=== PATIENT | female | born 1950 | race Caucasian/White ===

== ENCOUNTER → 2020-03-25 | Outpatient (CLI) | payer MEDICARE ==
[2020-03-26 04:40] LABS: Gliadin AB IgA, Deaminated NEGATIVE (NEGATIVE); Gliadin AB IgA, Unit <0.2 U/mL; Gliadin AB IgG, Deaminated NEGATIVE (NEGATIVE)
== END | disposition home or self-care (01) ==
LOC: LABWHC1 15:39
PROVIDERS: ATTEND Nurse Practitioner
DX: K52.9 Noninfective gastroenteritis and colitis, unspecified (principal)
CPT/HCPCS: 36415; 83516; 83630; 85652; 86140; 87045; 87046; 87328; 87329

== ENCOUNTER → 2020-03-31 | Outpatient (CLI) | payer MEDICARE ==
--- NOTE | 2020-03-31 11:54 | US ---
EXAMINATION TYPE: US abdomen limited DATE OF EXAM: 03/31/2020 COMPARISON: NONE CLINICAL HISTORY: 69-year-old female K76.89 DISEASE OF LIVER. Pt states generalized ABD pain, h/o abn ormal labs, GB removed TECHNIQUE: Multiple sonographic images of the right upper quadrant are obtained. FINDINGS: EXAM MEASUREMENTS: Liver Length: 19.3 cm CBD: 0.7 cm Right Kidney: 11.6 x 4.3 x 5.1 cm Pancreas: wnl, tail obscured by overlying bowel gas Liver: Sylvia enlarged with slight increased echogenicity. Hypoechoic area at the alanis hepatis measu ring 2.6 x 2.5 cm. Gallbladder: Surgically absent Evidence for sonographic Jara's sign: No CBD: wnl post jeremy Right Kidney: In upper pole cortical cyst measuring 1.5 x 1.3 x 1.6 cm . No hydronephrosis. IMPRESSION: 1. Mild fatty infiltration of the liver. A 2.6 cm hypoechoic area at the alanis hepatis likely relates to focal fatty sparing. A 3-6 month follow-up ultrasound is recommended to reassess this area. 2. Mildly dilated bile duct at 7 mm is acceptable given postcholecystectomy status and patient's age.
== END | disposition home or self-care (01) ==
LOC: RADUSWWP 10:57
PROVIDERS: ATTEND Family Medicine
DX: K76.0 Fatty (change of) liver, not elsewhere classified (principal); R93.2 Abnormal findings on diagnostic imaging of liver and biliary tract; K83.8 Other specified diseases of biliary tract; Z90.49 Acquired absence of other specified parts of digestive tract
CPT/HCPCS: 76705

== ENCOUNTER 2020-04-03 06:32 | Day surgery (SDC) | payer MEDICARE ==
[2020-04-01 11:37] VITALS: BMI 34.3
[~2020-04-03 06:32] MED LIST: LACTATED RINGERS 1,000 ML IV SCH
[2020-04-03 07:22] LABS: Glucose,Whole Blood 123 mg/dL (75-99)
[2020-04-03] MEDS ORDERED: LIDOCAINE 1% (10MG/ML) FOR IV START INTRADERMA ONE (07:23)
[2020-04-03 07:26] VITALS: TEMP 97.2
[2020-04-03] MEDS ORDERED: LIDOCAINE 1% INJ 10MG/ML (20 ML MDV) ONE (07:37)
[2020-04-03] MEDS ORDERED: GLYCOPYRROLATE 0.2 MG/ML 2 ML VIAL ONE (07:37)
[2020-04-03] MEDS ORDERED: PROPOFOL 10 MG/ML 20 ML VIAL IV ONE (07:37)
--- NOTE | 2020-04-03 08:15 | P.PCN ---
Date of Procedure: 04/03/20 Description of Procedure: Brief history: Patient is a 69-year-old female presenting for outpatient EGD and colonoscopy for evaluation of epigastric pain, diarrhea, altered bowel function. No prior colonoscopies reported. Patient reports epigastric abdominal pain as well as associated heartburn and bloating. She was started on dicyclomine with some improvement in symptoms. No prior colonoscopy. Procedure performed: Esophagogastroduodenoscopy with biopsy Colonoscopy with biopsy and polypectomy Estimated blood loss: Minimal. Preoperative diagnosis: Epigastric abdominal pain, diarrhea, change in bowel habits, no prior colonoscopy Anesthesia: [facility] [place] Procedure: After informed consent was obtained from the patient was brought into the endoscopy unit and IV sedation was administered by anesthesia under continuous monitoring. Initially upper endoscopy was done. The Olympus GF 190 video endoscope was inserted into the mouth and esophagus intubated without any difficulty and was gradually advanced into the stomach and duodenum and carefully examined. The bulb and second part of the duodenum appeared normal, with biopsies taken. The scope was then withdrawn into the stomach adequately insufflated with air and upon careful examination the antrum and body, cardia and fundus appeared normal, except for some mild scattered erythema in the antrum and body suggestive of mild gastritis with biopsies taken. The scope was then withdrawn into the esophagus. The GE junction was located at 40 cm to the incisors and biopsies. It appeared regular with no erythema erosions or ulcerations. Rest of the esophagus appeared normal. Patient tolerated the procedure well. At this time the patient continued to remain sedation. Initial digital rectal examination was normal. Olympus CF 190 video colonoscope was then inserted into the rectum and gradually advanced to the cecum without any difficulty. Careful examination was performed as the scope was gradually being withdrawn. The prep was excellent. The terminal ileum was intubated and appeared normal biopsies taken. The cecum, ascending colon, transverse colon, descending colon, sigmoid colon and rectum appeared normal, with biopsies taken of the right and left colon. A few scattered diverticula noted in the sigmoid colon. A diminutive 2 mm ascending colon polyp was removed with cold forceps polypectomy. Retroflexion was performed in the rectum and no lesions were noted. Patient tolerated the procedure well. Impression: 1. Mild gastritis. Biopsies taken of the duodenum, antrum body and GE junction. 2. Diminutive ascending colon polyp removed with cold forcep polypectomy. Mild sigmoid diverticulosis. Random biopsies taken of the terminal ileum, right colon and left colon in the setting of diarrhea. Recommendations: Findings of this examination were discussed with the patient as well as her family. Okay to resume diet. Okay to resume medications. Patient should follow up in GI clinic in 1-2 weeks for results of biopsies and for further management.
[2020-04-03 09:05] VITALS: BP 110/74; PULSE 72; RESP 18
== END 2020-04-03 09:05 | disposition home or self-care (01) ==
LOC: ORWHC2ENDO 06:32
PROVIDERS: ATTEND Internal Medicine
DX: K29.50 Unspecified chronic gastritis without bleeding (principal); D12.2 Benign neoplasm of ascending colon; K57.30 Diverticulosis of large intestine without perforation or abscess without bleeding; I10 Essential (primary) hypertension; F17.200 Nicotine dependence, unspecified, uncomplicated; E11.9 Type 2 diabetes mellitus without complications; E07.9 Disorder of thyroid, unspecified; K21.9 Gastro-esophageal reflux disease without esophagitis; Z90.49 Acquired absence of other specified parts of digestive tract; Z90.710 Acquired absence of both cervix and uterus; Z98.890 Other specified postprocedural states; Z79.84 Long term (current) use of oral hypoglycemic drugs; Z79.82 Long term (current) use of aspirin; Z79.890 Hormone replacement therapy; Z79.891 Long term (current) use of opiate analgesic; Z79.899 Other long term (current) drug therapy; Z88.8 Allergy status to other drugs, medicaments and biological substances; Z88.5 Allergy status to narcotic agent
CPT/HCPCS: 88305; 45380; 43239; J2001; J2704

== ENCOUNTER 2023-02-09 07:39 | Day surgery (SDC) | payer MEDICARE, OTHER ==
[2023-02-04 14:46] VITALS: BMI 28.3
[~2023-02-09 07:39] MED LIST changes: +TETRACAINE 0.5% OPHTH (PF) DROPS 4 ML BTL OP PRN
[2023-02-09] MEDS: CYCLOPENTOLATE 1% OPHTH SOLN 2 ML BTL OP PRN ×3 (08:14→08:26)
[2023-02-09] MEDS: PHENYLEPHRINE 2.5% OPHTH DRP 2ML OP PRN ×3 (08:17→08:29)
[2023-02-09 08:22] VITALS: RESP 16; TEMP 97
[2023-02-09] MEDS ORDERED: fentaNYL (PF) 50 MCG/ML 2 ML AMP ONE (08:49)
[2023-02-09] MEDS ORDERED: MIDAZOLAM 2 MG/2 ML VIAL ONE (08:49)
[2023-02-09] MEDS ORDERED: EPINEPHrine (PF) 0.3 ML in BALANCED SALT IRRIG SOLN COMB2 500 ML IRRIGATION ONE (08:52)
[2023-02-09] MEDS ORDERED: BALANCED SALT IRRIG SOLN COMB2 15 ML IRRIG.SOLN IRRIGATION ONE ×2 (08:53→09:04)
[2023-02-09] MEDS ORDERED: HYALURONATE SODIUM INTRAOCULAR 1 EACH SYRINGE (12MG/ML) INTRAOCULA ONE ×2 (08:53→09:04)
[2023-02-09] MEDS: TIMOLOL 0.5% OPHTH DROPS 5 ML BTL OP PRN ×2 (08:54→09:27)
[2023-02-09] MEDS ORDERED: ATROPINE OPHTH SOLN 1% 5ML BTL RIGHT EYE ONE ×2 (08:54→09:26)
[2023-02-09] MEDS: MOXIFLOXACIN HCL 0.5% DROPS 3 ML BTL OP PRN ×2 (08:54→09:26)
[2023-02-09] MEDS ORDERED: LIDOCAINE 1% (PF) 10MG/ML VIAL MISCELLANE ONE ×2 (08:54→09:04)
--- NOTE | 2023-02-09 09:30 | P.OP ---
Date of Procedure: 02/09/23 Preoperative Diagnosis: NS Postoperative Diagnosis: same Procedure(s) Performed: PIOL, OD Implants: AO1UV 22.50 Anesthesia: MAC Surgeon: Alejandro Latham Pathology: none sent Condition: stable Disposition: same day Indications for Procedure: blurry vision Operative Findings: no complications
[2023-02-09 09:52] VITALS: BP 145/65; PULSE 52
--- NOTE | 2023-02-09 14:35 | OP ---
OPERATIVE REPORT DATE OF SERVICE : PREOPERATIVE DIAGNOSIS: Nuclear sclerosis. POSTOPERATIVE DIAGNOSIS: Nuclear sclerosis. OPERATION: Phacoemulsification of cataract and intraocular lens implant with a Crystalens eye. VISCOELASTIC: Amvisc. NARRATIVE: After obtaining the appropriate consent, the patient was brought to the operating room. There the patient was placed under cardiac monitoring, prepped and draped in the usual sterile manner. The patient was approached from the temporal side. The mm Chichi ring inked in gentian herbert was placed centrally on the cornea. At the 11 o'clock position, a 1.1 mm keratome was used to create a paracentesis port. Through this opening, 1% Xylocaine MPF 50/50 mix with balanced salt solution was injected into the anterior chamber. This was followed by stabilization of the anterior chamber with Amvisc viscoelastic. At the 9 o'clock position, a 2.75 mm vince keratome was used to create a self-scaling corneal flap incision in a Langerman fashion. Through this opening, a cystotome was introduced to begin a continuous tear capsulorrhexis which was completed using the Utrata forceps. Care was taken to ensure that the capsulorrhexis was at least the size of the emiliano on the anterior cornea. Hydrodissection and hydrodelineation of the lens were accomplished with balanced salt solution. Phacoemulsification of the lens utilizing phaco chop was accomplished in 11.47 seconds at 14% power. Addition Xylocaine MPF was instilled into the anterior chamber. This was followed by removal of the remaining cortex under irrigation and aspiration along with careful polishing of the posterior capsule in a capsule vacuum mode. Additional Amvisc viscoelastic was then used to stabilize the capsular bag, and the Bausch and Lomb Crystalens intraocular lens, model AO1UV, 22.5 diopters, was injected into the capsular bag without difficulty. The lens was rotated 270 degrees so that the haptics resided at the 6 and 12 o'clock positions, and all remaining viscoelastic was then removed from within the capsular bag and around the anterior chamber. The eye was brought to normal intraocular pressure through the paracentesis port along with slight hydration of the incision sites. Watertight integrity was confirmed using a fluorescein strip. The patient then received 2 drops of 0.5% timolol followed by 2 drops of Vigamox and 2 drops of 1% atropine. The patient was then lightly patched and shielded in the usual manner. There were no complications from the procedure. The patient tolerated the procedure well and was returned to outpatient recovery in good condition. REJI / VIRALN: [id number] /
== END 2023-02-09 10:17 | disposition home or self-care (01) ==
LOC: OR 07:39
PROVIDERS: ATTEND Ophthalmology
DX: E11.36 Type 2 diabetes mellitus with diabetic cataract (principal); H25.11 Age-related nuclear cataract, right eye; I10 Essential (primary) hypertension; E78.5 Hyperlipidemia, unspecified; E07.9 Disorder of thyroid, unspecified; F32.A Depression, unspecified; F12.90 Cannabis use, unspecified, uncomplicated; Z88.5 Allergy status to narcotic agent; Z91.018 Allergy to other foods; Z88.8 Allergy status to other drugs, medicaments and biological substances; Z79.84 Long term (current) use of oral hypoglycemic drugs; Z79.890 Hormone replacement therapy; Z79.899 Other long term (current) drug therapy
CPT/HCPCS: 66984; V2632; V2788; C1762; J2250; J0171; J3010; J2001

== ENCOUNTER 2023-03-02 09:18 | Day surgery (SDC) | payer MEDICARE, OTHER ==
[2023-03-01 12:18] VITALS: BMI 28.3
[~2023-03-02 09:18] MED LIST changes: +LIDOCAINE 1% (10MG/ML) FOR IV START INTRADERMA PRN
[2023-03-02] MEDS: CYCLOPENTOLATE 1% OPHTH SOLN 2 ML BTL OP PRN ×3 (09:54→10:09)
[2023-03-02] MEDS: PHENYLEPHRINE 2.5% OPHTH DRP 2ML OP PRN ×3 (09:58→10:16)
[2023-03-02] MEDS ORDERED: ONDANSETRON 4 MG/2 ML VIAL IVP ONE (10:12)
[2023-03-02 10:13] VITALS: TEMP 98.1
[2023-03-02] MEDS ORDERED: ONDANSETRON 4 MG/2 ML VIAL ONE (10:13)
[2023-03-02] MEDS ORDERED: MIDAZOLAM 2 MG/2 ML VIAL ONE (10:48)
[2023-03-02] MEDS ORDERED: fentaNYL (PF) 50 MCG/ML 2 ML AMP ONE (10:48)
[2023-03-02] MEDS ORDERED: EPINEPHrine (PF) 0.3 ML in BALANCED SALT IRRIG SOLN COMB2 500 ML IRRIGATION ONE (10:57)
[2023-03-02] MEDS ORDERED: LIDOCAINE 1% (PF) 10MG/ML VIAL MISCELLANE ONE ×2 (11:03→11:06)
[2023-03-02] MEDS: ATROPINE OPHTH SOLN 1% 5ML BTL OPHTHALMIC PRN ×2 (11:03→11:06)
[2023-03-02] MEDS ORDERED: BALANCED SALT IRRIG SOLN COMB2 15 ML IRRIG.SOLN INTRAOCULA ONE ×2 (11:03→11:06)
[2023-03-02] MEDS ORDERED: DUOVISC KIT (GREEN BOX) INTRAOCULA ONE ×2 (11:03→11:06)
[2023-03-02] MEDS: MOXIFLOXACIN HCL 0.5% DROPS 3 ML BTL OP PRN ×2 (11:04→11:06)
[2023-03-02] MEDS: TIMOLOL 0.5% OPHTH DROPS 5 ML BTL OP PRN ×2 (11:04→11:06)
--- NOTE | 2023-03-02 11:29 | P.OP ---
Date of Procedure: 03/02/23 Preoperative Diagnosis: NS Postoperative Diagnosis: NS Procedure(s) Performed: PIOL, OD Implants: AO1UV 22.50 Anesthesia: MAC Surgeon: Alejandro Latham Pathology: none sent Condition: stable Disposition: same day Indications for Procedure: blurry vision Operative Findings: no complications
[2023-03-02 11:33] VITALS: RESP 14
[2023-03-02 11:48] VITALS: BP 137/83; PULSE 56
--- NOTE | 2023-03-03 09:46 | OP ---
OPERATIVE REPORT DATE OF SERVICE : 03/02/2023 PREOPERATIVE DIAGNOSIS: Nuclear sclerosis. POSTOPERATIVE DIAGNOSIS: Nuclear sclerosis. OPERATION: Phacoemulsification of cataract and interocular lens implant, left eye. ESTIMATED BLOOD LOSS: Zero. SPECIMEN TAKEN: None. NARRATIVE: After obtaining the appropriate consent, the patient was brought to the operating room where the patient was placed under cardiac monitoring and prepped and draped in the usual sterile manner. At the 5 o'clock position, a 15-degree super sharp blade was used to create a paracentesis followed by instillation of 1% Xylocaine MPF 50:50 mix with BSS into the anterior chamber. This was followed by Amvisc viscoelastic to stabilize the anterior chamber. At the 3 o'clock position a self-sealing corneal flap incision was created using 2.8 mm vince keratome. A cystotome was used to initiate a continuous tear capsulorrhexis which was completed with the Utrata forceps. A Binkhorst cannula was used to hydrodissect the lens nucleus followed by hydrodelineation. Phacoemulsification of the lens was performed utilizing phacochop in 10.14 seconds at 19.5% power. The remaining cortical material was removed using the irrigation aspiration mode followed by additional 1% Xylocaine MPF into the anterior chamber followed by viscoelastic to stabilize the capsular bag. A Bausch and Lomb Crystalens model AO1UV 22.5 diopters posterior chamber lens was placed into the capsular bag without difficulty. The remaining viscoelastic material was removed from the anterior chamber with the irrigation/aspiration. Balanced salt solution was used to normalize the intraocular pressure. The incision was checked for watertight integrity. The patient then received 2 drops of 0.5% timolol followed by 2 drops Vigamox, was lightly patched and shielded in the usual manner. There were no complications from the procedure. The patient tolerated the procedure well and was returned to recovery in good condition. MMODL / IJN: [id number] /
== END 2023-03-02 12:03 | disposition home or self-care (01) ==
LOC: OR 09:18
PROVIDERS: ATTEND Ophthalmology
DX: H25.12 Age-related nuclear cataract, left eye (principal); I10 Essential (primary) hypertension; E78.5 Hyperlipidemia, unspecified; F41.9 Anxiety disorder, unspecified; F32.A Depression, unspecified; M10.9 Gout, unspecified; E07.9 Disorder of thyroid, unspecified; M19.90 Unspecified osteoarthritis, unspecified site; K21.9 Gastro-esophageal reflux disease without esophagitis; F17.200 Nicotine dependence, unspecified, uncomplicated; Z88.5 Allergy status to narcotic agent; Z88.8 Allergy status to other drugs, medicaments and biological substances; Z79.890 Hormone replacement therapy; Z79.899 Other long term (current) drug therapy
CPT/HCPCS: 66984; V2632; V2788; C1762; J2250; J2405; J0171; J3010; J2001

== ENCOUNTER 2023-06-21 08:48 | Emergency (ER) | payer MEDICARE, OTHER ==
[2023-06-21 09:03] VITALS: RESP 18; TEMP 97.9
[2023-06-21] MEDS ORDERED: ORPHENADRINE 30 MG/ML 2 ML VIAL IM STA (09:06)
[2023-06-21] MEDS ORDERED: KETOROLAC 15 MG/ML 1 ML VIAL IM STA (09:06)
[2023-06-21] MEDS ORDERED: ONDANSETRON ODT 4 MG TAB PO STA (09:06)
--- NOTE | 2023-06-21 09:20 | ED ---
Extremity Problem HPI - General Chief complaint: Extremity Problem,Nontraumatic Stated complaint: L Leg Pain Time Seen by Provider: 06/21/23 08:58 Source: patient, family, RN notes reviewed Mode of arrival: ambulatory Limitations: no limitations - History of Present Illness Initial comments: This is a 73-year-old female who presents to the emergency department for left leg pain. States that this began around 4 days ago and seems to be worsening. This is primarily around the left thigh and described as a tightness and stabbing sensation. States that it almost feels like there is a tourniquet on her leg. Denies any injuries. She has not noticed any redness or swelling to this area. Also denies any hx of similar symptoms in the past. She did take Ibuprofen with only mild relief in symptoms. Notes a previous history of problems with her back. MD Complaint: extremity pain Onset/Timin -: days(s) - Related Data Home Medications Medication Instructions Recorded Confirmed Bisoprolol-Hctz 10-6.25 mg [Ziac 1 tab PO BID 04/01/20 03/02/23 10-6.25 MG] Dicyclomine [Bentyl] 20 mg PO DIRECTED PRN 04/01/20 03/02/23 FLUoxetine HCL [PROzac] 40 mg PO DAILY 04/01/20 03/02/23 Levothyroxine Sodium [Synthroid] 100 mcg PO DAILY 04/01/20 03/02/23 Pantoprazole Sodium [Protonix] 40 mg PO BID 04/01/20 03/02/23 amLODIPine [Norvasc] 5 mg PO HS 04/01/20 03/02/23 busPIRone HCL 7.5 mg PO BID 04/01/20 03/02/23 Fruit/Vege Supplement 1 dose PO DIRECTED 02/04/23 03/02/23 Relief Factor 1 dose PO DAILY 02/04/23 03/02/23 Statin (Unknown Name) 1 dose PO Q48H 02/04/23 03/02/23 Previous Rx's Medication Instructions Recorded methocarbamoL [Robaxin-750] 1,500 mg PO TID PRN #30 tab 06/21/23 predniSONE 50 mg PO DAILY 5 Days #5 tab 06/21/23 Allergies Allergy/AdvReac Type Severity Reaction Status Date / Time codeine Allergy Nausea Verified 06/21/23 08:57 enalaprilat [From Vasotec] Allergy Vomiting Verified 06/21/23 08:57 hydromorphone [From Dilaudid] Allergy Dyspnea Verified 06/21/23 08:57 thimerosal Allergy "luna Verified 06/21/23 08:57 like fire in my eyes" bupropion [From Wellbutrin] AdvReac Unknown Verified 06/21/23 08:57 Review of Systems ROS Statement: Those systems with pertinent positive or pertinent negative responses have been documented in the HPI. ROS Other: All systems not noted in ROS Statement are negative. Past Medical History Past Medical History: GERD/Reflux, Hyperlipidemia, Hypertension, Osteoarthritis (OA), Thyroid Disorder Additional Past Medical History / Comment(s): possible hiatal hernia , IBS with chronic diarrhea , hx pancreatitis several times, gout, no longer diabetic. History of Any Multi-Drug Resistant Organisms: None Reported Past Surgical History: Cholecystectomy, Hysterectomy Additional Past Surgical History / Comment(s): mult laparotomy/ laproscopy surgery for endometriosis. left cataract removal Past Anesthesia/Blood Transfusion Reactions: Previous Problems w/ Anesthesia, Motion Sickness, Postoperative Nausea & Vomiting (PONV) Additional Past Anesthesia/Blood Transfusion Reaction / Comment(s): "severe vomiting, confusion"- states drugs that cause amnesia causes problems- depression after anesthesia Past Psychological History: Anxiety, Depression Smoking Status: Current every day smoker Past Alcohol Use History: Rare Past Drug Use History: Marijuana - Past Family History Father Family Medical History: Cancer Brother(s) Family Medical History: Pulmonary Embolus General Exam Limitations: no limitations General appearance: alert, in distress Head exam: Present: atraumatic, normocephalic, normal inspection Respiratory exam: Present: normal lung sounds bilaterally. Absent: respiratory distress, wheezes, rales, rhonchi, stridor Cardiovascular Exam: Present: regular rate, normal rhythm, normal heart sounds. Absent: systolic murmur, diastolic murmur, rubs, gallop, clicks Extremities exam: Present: other (There is no swelling, erythema, or deformities to the left thigh. Pain is only mildly reproducible on palpation. 2+ DP and PT pulses. Full range of motion.) Neurological exam: Present: alert, oriented X3, CN II-XII intact Psychiatric exam: Present: normal affect, normal mood Skin exam: Present: warm, dry, intact, normal color. Absent: rash Course Vital Signs 06/21/23 06/21/23 08:55 11:01 Temperature 97.9 F 97.9 F Pulse Rate 69 72 Respiratory 18 18 Rate Blood Pressure 143/86 136/68 O2 Sat by Pulse 99 97 Oximetry Medical Decision Making - Medical Decision Making This is a 73-year-old female who presents to the emergency department for left leg pain. Was pt. sent in by a medical professional or institution? @ -No Did you speak to anyone other than the patient for history? @ -No Did you review nursing and triage notes? @ -Yes, and I agree, it is accurate with regards to the patient's symptoms. Were old charts reviewed? @ -No Differential Diagnosis? @ -Differential Leg Pain: Leg fracture, leg sprain, DVT, PVD, arterial insufficiency, iliac artery aneurysm, cellulitis, compartment syndrome, tendinopathy, nerve entrapment, piriformis syndrome, osteoarthritis, rhabdomyolysis, myositis, cramping from an electrolyte imbalance, this is not meant to be an all inclusive list. EKG interpreted by me (3pts min.)? @ -Not obtained X-rays interpreted by me (1pt min.)? @ -Not obtained CT interpreted by me (1pt min.)? @ -CT scan of the lumbar spine and left femur obtained. My interpretation identifies no acute fractures. U/S interpreted by me (1pt. min.)? @ -Duplex US of the left lower extremity obtained. My interpretation identifies no evidence of a DVT. What testing was considered but not performed? (CT, X-rays, U/S, labs)? Why? @ -None What meds were considered but not given? Why? @ -None Did you discuss the management of the patient with other professionals? @ -No Did you reconcile home meds? @ -No Was smoking cessation discussed for >3mins.? @ -No Was critical care preformed (if so, how long)? @ -No Were there social determinants of health that impacted care today? How? (Homelessness, low income, unemployed, alcoholism, drug addiction, transportation, low edu. Level, literacy, decrease access to med. care, custodial, rehab)? @ -No Was there de-escalation of care discussed even if they declined? (Discuss DNR or withdrawal of care, Hospice)? @ -No What co-morbidities impacted this encounter? (DM, HTN, Smoking, COPD, CAD, Cancer, CVA, Hep., AIDS, mental health diagnosis, sleep apnea, morbid obesity)? @ -OA Was patient admitted / discharged? @ -Discharged. Patient had no external irregularities on exam. Duplex ultrasound obtained revealing no evidence of a DVT or other acute process. Computed tomography scan of the left femur and lumbar spine obtained. She has multiple disc bulges in the lumbar spine as well as moderate multilevel spondylosis. CT scan of the left femur identifies degenerative changes and insertional tendinopathy of the left greater trochanter. Findings reviewed with the patient. Advised that symptoms may be radicular from the back pain or related to the insertional tendinopathy. Her symptoms were well controlled in the emergency department. Rx for prednisone and Robaxin provided with dosing instructions reviewed. She was given information for orthopedic follow-up and advised to contact them for a follow up appointment. Undiagnosed new problem with uncertain prognosis? @ -None Drug Therapy requiring intensive monitoring for toxicity (Heparin, Nitro, Insulin, Cardizem)? @ -None Were any procedures done? @ -None Diagnosis/symptom? @ -Lumbar radiculopathy, left leg pain Acute, or Chronic, or Acute on Chronic? @ -Acute Uncomplicated (without systemic symptoms) or Complicated (systemic symptoms)? @ -Uncomplicated Side effects of treatment? @ -None Exacerbation, Progression, or Severe Exacerbation] @ -Not applicable Poses a threat to life or bodily function? @ -No Return precautions reviewed in depth, the patient is instructed to return to the emergency department with any new, worsening, or concerning symptoms. Patient verbalized understanding. This case was discussed in detail with the attending ED physician, Dr. Horton. Presentation, findings, and treatment plan discussed in detail as well. - Radiology Data Radiology results: report reviewed, image reviewed Disposition Clinical Impression: Lumbar radiculopathy, Left leg pain Disposition: HOME SELF-CARE Instructions (If sedation given, give patient instructions): Lumbar Radiculopathy (ED) Additional Instructions: Return to the emergency department with any new, worsening, or concerning symptoms. Take the prednisone daily for 5 days. Take this with Tylenol for additional relief. You can take the Robaxin as 1-2 tablets up to 3-4 times daily . Take the [place] sparingly when your pain is the most severe. Be aware that both the Robaxin and [place] may make you drowsy. Contact orthopedics as listed below for a follow-up appointment and reevaluation of ongoing symptoms. Follow up with your primary care provider in 1-2 days. Prescriptions: predniSONE 50 mg PO DAILY 5 Days #5 tab methocarbamoL [Robaxin-750] 1,500 mg PO TID PRN #30 tab PRN Reason: Pain Is patient prescribed a controlled substance at d/c from ED?: Yes When asked, does pt state using other controlled substances?: No If prescribed controlled substance>3 days was MAPS reviewed?: Prescribed <3 Days Referrals: Angelica Villegas DO [Primary Care Provider] - 1-2 days Tano Warren DO [Doctor of Osteopathic Medicine] - 1-2 days
--- NOTE | 2023-06-21 09:47 | US ---
EXAMINATION TYPE: US venous doppler duplex LE LT DATE OF EXAM: 06/21/2023 9:06 AM COMPARISON: NONE CLINICAL INDICATION: Female, 73 years old with history of Left leg pain; Left leg pain SIDE PERFORMED: left TECHNIQUE: The lower extremity deep venous system is examined utilizing real time linear array sonog dionicio with graded compression, doppler sonography and color-flow sonography. VESSELS IMAGED: Common Femoral Vein Deep Femoral Vein Greater Saphenous Vein * Femoral Vein Popliteal Vein Small Saphenous Vein * Proximal Calf Veins (* superficial vessels) Left Leg: No evidence of DVT as visualized IMPRESSION: Grayscale, color doppler, spectral doppler imaging performed of the deep veins of the lo wer extremities. There is normal flow, compressibility, vascular waveforms.
[2023-06-21] MEDS ORDERED: HYDROcodone/APAP 10-325MG 1 EACH TAB PO ONE (10:03)
--- NOTE | 2023-06-21 11:20 | CT ---
EXAMINATION TYPE: CT femur LT wo con CT DLP: 844 mGycm, Automated exposure control for dose reduction was used. DATE OF EXAM: 06/21/2023 10:47 AM COMPARISON: None CLINICAL INDICATION:Female, 73 years old with history of Nontraumatic pain; PHH, pain down left leg x 4 days, no injury TECHNIQUE: Axial images were obtained of the CT femur LT wo con, Additional coronal and sagittal refo rmatted images and soft tissue and bone window were obtained for review. 3-D reconstruction was creat ed on a separate workstation. Contrast used: mL of , (None if empty) Oral contrast used: (None if empty) FINDINGS: There is no evidence of fracture, subluxation, or dislocation. No significant soft tissue swelling or joint effusion is identified. No focal muscular atrophy or edema is identified. No radiop aque foreign body identified. Scattered colonic diverticula. Mild left hip osteoarthrosis changes wit h osteophyte formation superior acetabulum and joint space narrowing. Insertional tendinopathy at the greater trochanter suggested. Uterus is surgically absent. IMPRESSION: 1. No evidence of fracture. 2. Mild degeneration changes of the left hip. 3. Insertional tendinopathy at the greater trochanter suggested.
[2023-06-21 11:24] VITALS: BP 136/68; PULSE 72
--- NOTE | 2023-06-21 11:33 | CT ---
EXAMINATION TYPE: CT lumbar spine wo con CT DLP: 1124.6 mGycm, Automated exposure control for dose reduction was used. DATE OF EXAM: 06/21/2023 10:48 AM COMPARISON: None. CLINICAL INDICATION:Female, 73 years old with history of Nontraumatic pain; PHH, lower back pain and down left leg, x4 days no injury TECHNIQUE: Multiple axial images were obtained from the midportion of T11 through the sacroiliac bruno nts. Soft tissue and bone windows in coronal and sagittal planes were obtained and reviewed. 3-D ref ormats of the bones were created on a separate workstation and submitted for review. Contrast used: mL of , none. Oral contrast used: none. FINDINGS: Bones appear mildly osteopenic. There is no evidence of acute fracture or traumatic malalignment. No lytic/blastic bony lesion. There is moderate multilevel degenerative disk disease and facet arthropat hy, with about 3 mm anterolisthesis L4 on L5 and 3 mm anterolisthesis L5 on S1. No clear evidence of focal disc herniation by this exam, if there is persistent concern MRI may be contemplated. At T12-L1, there is posterior broad-based disc bulge with partially calcified margin and mild facet d isease. Mild narrowing of the canal and neural foramina. L1-L2, mild circumferential disc bulge and mild facet arthrosis. Mild canal and neural foraminal sten oses. L2-L3, small posterior disc osteophyte complex and mild facet arthrosis causes mild canal and neural foraminal stenoses. L3-L4, mild/moderate posterior disc bulge with small marginal osteophytes and mild to moderate facet arthrosis causes mild to moderate canal and bilateral neural foraminal stenosis. L4-5, there is some unroofing of the disc by the listhesis and mild posterior disc bulge. There is mo derate bilateral facet arthrosis. Moderate canal and bilateral neural foraminal stenosis. L5-S1, unroofing of the disc associated with the listhesis. There is posterior disc bulge with margin al osteophytes and moderate facet arthrosis, causing moderate canal and bilateral neural foraminal st enoses. Visualized upper sacrum appears grossly intact. Mild degenerative changes of the SI joints. Other: Moderate calcification of the abdominal aorta and iliac arteries without evidence of aneurysm. Mildly thickened adrenals without evidence of mass. No immediate paraspinous soft tissue abnormality . No free fluid is seen. IMPRESSION: 1. No evidence of acute fracture of the lumbar spine. 2. Moderate multilevel spondylosis as described.
[2023-06-21] MEDS ORDERED: MORPHINE SULFATE 4 MG/ML SYRINGE IM STA (12:14)
[2023-06-21] MEDS ORDERED: DEXAMETHASONE SOD PHOSPHATE 10 MG/ML 1 ML VIAL IM STA (12:27)
== END 2023-06-21 13:42 | disposition home or self-care (01) ==
LOC: EC 08:48
DX: M54.16 Radiculopathy, lumbar region (principal); I10 Essential (primary) hypertension; F32.A Depression, unspecified; F41.9 Anxiety disorder, unspecified; K21.9 Gastro-esophageal reflux disease without esophagitis; E78.5 Hyperlipidemia, unspecified; E07.9 Disorder of thyroid, unspecified; F17.200 Nicotine dependence, unspecified, uncomplicated; F12.90 Cannabis use, unspecified, uncomplicated; Z79.890 Hormone replacement therapy; Z79.899 Other long term (current) drug therapy; Z88.8 Allergy status to other drugs, medicaments and biological substances; Z88.5 Allergy status to narcotic agent
CPT/HCPCS: 93971; 72131; 73700; 99284; 96372 ×4; J2270; J1100; J2360; J1885